=== PATIENT | male | born 1995 | race Caucasian/White ===

== ENCOUNTER 2018-04-12 12:26 | Emergency (ER) | payer OTHER ==
[~2018-04-12] VITALS: Ht 182.9 cm; Wt 115.5 kg
[~2018-04-12 12:26] MED LIST: NO HOME MEDICATIONS; PERCOCET 325 MG1 TA2 PO; ZOFRAN ODT4 MG PO
[2018-04-12 12:32] VITALS: TEMP 97.6
[2018-04-12 13:10] LABS: BASO % 0.4 % (0.0-2.0); EOS # 0.2 (0.0-0.7); EOS % 1.6 % (0-4.0); GRAN # 6.9 (1.4-6.5); GRAN % 64.3 % (42.2-75.2); HEMATOCRIT 44.1 % (42.0-52.0); HEMOGLOBIN 14.9 g/dl (13.5-18.0); LYMPH # 2.6 (1.2-3.4); LYMPH % 24.6 % (20.0-51.0); MEAN CELL VOLUME 86 fl (80.0-100.0); MEAN CORPUSCULAR HEMOGLOBIN 29 pg (27.0-31.0); MEAN CORPUSCULAR HGB CONC 34 g/dl (33.0-37.0); MEAN PLATELET VOLUME 8.8 fl (7.4-10.4); MONO # 0.9 (0.1-0.6); MONO % 8.6 % (1.7-9.3); PLATELET COUNT 341 K/mm3 (130-400); RED BLOOD COUNT 5.16 M/mm3 (4.20-5.60); REDCELL DISTRIBUTION WIDTH-CV 12.8 % (11.5-14.5)
[2018-04-12 13:34] LABS: ALBUMIN 4.7 gm/dL (3.5-5.0); BILIRUBIN,TOTAL 0.4 mg/dL (0.0-1.0); C-REACTIVE PROTEIN 0.7 mg/dL (0.0-0.9); CALCIUM 9.7 mg/dL (8.4-10.2); CREATININE, serum 0.88 mg/dL (0.66-1.25); POTASSIUM 4.7 mmol/L (3.4-5.0); TOTAL PROTEIN 7.8 gm/dL (6.4-8.2)
[2018-04-12 15:19] LABS: COLLECTION METHOD CLEAN CATCH
[2018-04-12 15:32] LABS: PH 5 (5-8); URINE APPEARANCE Hazy; URINE BILIRUBIN Negative (NEGATIVE); URINE BLOOD 3+ (NEGATIVE); URINE COLOR Yellow; URINE GLUCOSE Negative (NEGATIVE); URINE KETONE Negative (NEGATIVE); URINE LEUKOCYTE ESTERASE Negative (NEGATIVE); URINE NITRATE Negative (NEGATIVE); URINE PROTEIN(semi-quant) 1+ (NEGATIVE); URINE UROBILINOGEN Negative (NEGATIVE)
[2018-04-12 15:38] LABS: MUCOUS Present /lpf
[2018-04-12 15:39] LABS: URINE CALCIUM OXALATE CRYSTAL Present /hpf
[2018-04-12] MEDS ORDERED: PERCOCET 325 MG1 TA2 PO (16:51)
[2018-04-12] MEDS ORDERED: ZOFRAN 4MG T4 MG/TAB PO (16:51)
[2018-04-12 17:00] VITALS: BP 122/82; PULSE 86
== END 2018-04-12 17:02 | disposition home or self-care (01) ==
LOC: COL.ER 12:26
PROVIDERS: Nurse Practitioner
DX: R10.9 Unspecified abdominal pain (principal); J45.909 Unspecified asthma, uncomplicated; F90.9 Attention-deficit hyperactivity disorder, unspecified type; Z87.442 Personal history of urinary calculi
CPT/HCPCS: J1170; J1885; J2405; J7030

== ENCOUNTER 2018-04-23 12:43 | Emergency (ER) | payer SELFPAY ==
[~2018-04-23] VITALS: Ht 182.9 cm; Wt 113.6 kg
[~2018-04-23 12:43] MED LIST changes: +ZOFRAN 4MG T4 MG/TAB PO
[2018-04-23 12:46] VITALS: TEMP 98.1
[2018-04-23 13:15] LABS: BASO # 0.1 (0.0-0.2); BASO % 0.5 % (0.0-2.0); EOS # 0.2 (0.0-0.7); GRAN # 7.3 (1.4-6.5); GRAN % 69.2 % (42.2-75.2); HEMATOCRIT 44.1 % (42.0-52.0); HEMOGLOBIN 15.1 g/dl (13.5-18.0); LYMPH # 1.7 (1.2-3.4); LYMPH % 16.4 % (20.0-51.0); MEAN CELL VOLUME 85 fl (80.0-100.0); MEAN CORPUSCULAR HEMOGLOBIN 29 pg (27.0-31.0); MEAN CORPUSCULAR HGB CONC 34 g/dl (33.0-37.0); MEAN PLATELET VOLUME 8.8 fl (7.4-10.4); MONO # 1.2 (0.1-0.6); MONO % 11.5 % (1.7-9.3); PLATELET COUNT 356 K/mm3 (130-400); RED BLOOD COUNT 5.21 M/mm3 (4.20-5.60); REDCELL DISTRIBUTION WIDTH-CV 13.1 % (11.5-14.5)
[2018-04-23 13:29] LABS: ALBUMIN 4.9 gm/dL (3.5-5.0); BILIRUBIN,TOTAL 0.8 mg/dL (0.0-1.0); C-REACTIVE PROTEIN 1.7 mg/dL (0.0-0.9); CALCIUM 9.9 mg/dL (8.4-10.2); CREATININE, serum 1.21 mg/dL (0.66-1.25); POTASSIUM 4.3 mmol/L (3.4-5.0); TOTAL PROTEIN 8.4 gm/dL (6.4-8.2)
[2018-04-23 14:56] LABS: COLLECTION METHOD CLEAN CATCH
[2018-04-23 15:04] LABS: MUCOUS Present /lpf; PH 5 (5-8); SQUAMOUS EPITHELIAL 0-2 /hpf; URINE APPEARANCE Clear; URINE BACTERIA None Seen /hpf; URINE BILIRUBIN Negative (NEGATIVE); URINE BLOOD 2+ (NEGATIVE); URINE COLOR Yellow; URINE GLUCOSE Negative (NEGATIVE); URINE KETONE Negative (NEGATIVE); URINE LEUKOCYTE ESTERASE Negative (NEGATIVE); URINE NITRATE Negative (NEGATIVE); URINE PROTEIN(semi-quant) Negative (NEGATIVE); URINE UROBILINOGEN Negative (NEGATIVE)
[2018-04-23] MEDS ORDERED: ZOFRAN 4MG T4 MG/TAB PO (17:15)
[2018-04-23] MEDS ORDERED: PERCOCET 325 MG1 TA2 PO (17:15)
[2018-04-23 17:28] VITALS: BP 131/91; PULSE 83
== END 2018-04-23 17:28 | disposition home or self-care (01) ==
LOC: COL.ER 12:43
PROVIDERS: Emergency Medicine; Nurse Practitioner
DX: N20.0 Calculus of kidney (principal); J45.909 Unspecified asthma, uncomplicated; F90.9 Attention-deficit hyperactivity disorder, unspecified type
CPT/HCPCS: J1885; J2405; J7030

== ENCOUNTER 2019-05-07 07:39 | Day surgery (SDC) | payer OTHER ==
[~2019-05-07] VITALS: Ht 182.9 cm; Wt 118.5 kg
[2019-05-07 08:08] VITALS: BP 129/86; PULSE 82; TEMP 98
[2019-05-07] MEDS ORDERED: MELATIN 3 MG-11 TAB PO (08:19)
[2019-05-07] MEDS ORDERED: ADVIL200 MG PO (08:20)
[2019-05-07] MEDS ORDERED: TYLENOL 325MG325 MG PO (08:21)
[2019-05-07] MEDS ORDERED: BENADRYL25 M2 PO (08:21)
[2019-05-07 10:58] VITALS: BP 126/60; PULSE 73; TEMP 98.8
--- NOTE | 2019-05-07 10:58 | NUR ---
Pt returned via cart from PACU back to [facility]. Pts HOB elevated and has tolerated ice chips. Mother present with pt on return. VSS-see flowsheet. Pt given iced water and a muffin per request. Denies need or complaints at this time. Side rails up and call light within reach.
[2019-05-07 11:13] VITALS: BP 129/72; PULSE 80
[2019-05-07 11:28] VITALS: BP 123/76; PULSE 80
[2019-05-07 11:43] VITALS: BP 131/88; PULSE 80
[2019-05-07 11:58] VITALS: BP 132/67; PULSE 69
--- NOTE | 2019-05-07 12:10 | NUR ---
Pt tolerated a muffin and water. VS remain stable. Denies complaints or needs. Voiced being ready to go and eat at home. IV removed without difficulty. Catheter tip intact and pressure dressing applied. Pt up to void, reported discomfort with urination. Teaching done on normal post cystoscopy expectations. Pt dressed for dc. Discharge teaching completed, pt and mother verbalized understanding. Taken via wheelchair to private vehicle for dc home with grandfather driving.
== END 2019-05-07 12:10 | disposition home or self-care (01) ==
LOC: SDCO 07:39
DX: E83.59 Other disorders of calcium metabolism (principal); J45.909 Unspecified asthma, uncomplicated; Z87.442 Personal history of urinary calculi; Z91.048 Other nonmedicinal substance allergy status; Z83.3 Family history of diabetes mellitus; Z80.3 Family history of malignant neoplasm of breast; Z82.49 Family history of ischemic heart disease and other diseases of the circulatory system; Z84.1 Family history of disorders of kidney and ureter
CPT/HCPCS: J0690; J1100; J1885; J2405; J2704; J3010; J7120; Q9967